=== PATIENT | male | born 1955 | race Caucasian/White ===

== ENCOUNTER → 2018-07-01 | Outpatient (CLI) | payer OTHER ==
--- NOTE | 2018-07-01 18:50 | MR ---
EXAMINATION TYPE: MR knee LT wo con DATE OF EXAM: 07/01/2018 COMPARISON: NONE HISTORY: Pain in left knee per order. Internal derangement rule out torn meniscus. Pain and swelling after twisting injury per patient. TECHNIQUE: Multiplanar, multisequence images of the knee is performed without IV contrast. FINDINGS: MEDIAL MENISCUS: Anterior horn is intact without tear. Posterior horn medial meniscus is markedly abn ormal with truncated appearance and vertical as well as oblique areas of increased signal extending t o articular surface seen best sagittal image 25. LATERAL MENISCUS: Anterior and posterior horns are intact without tear. CRUCIATE LIGAMENTS: The anterior and posterior cruciate ligaments are intact and unremarkable. COLLATERAL LIGAMENTS: The medial collateral ligament and lateral collateral ligament complex are inta ct. Mild fluid signal surrounds both medial collateral ligament and lateral collateral ligament compl ex. EXTENSOR MECHANISM: Visualized quadriceps and patellar tendons are intact. EFFUSION: There is small to moderate-sized suprapatellar joint effusion. POPLITEAL CYST: No popliteal/gonzalez cyst. TRICOMPARTMENT SPACES: Mild to moderate tricompartment joint space loss is present with mild spurring . CARTILAGE: Minimal fissuring along posterior patellar pole sagittal image 15. Mild cartilaginous loss medial tibiofemoral compartment. BONE MARROW SIGNAL: No focal abnormal marrow signal is appreciated. OTHER: There is ill-defined fluid posterior aspect extending from distal femoral level through the pr oximal tibia this surrounds the deep muscle fibers just deep to the popliteal artery and vein extendi ng to level of the posterior proximal tibial metaphysis. This is believed to be popliteus muscle. IMPRESSION: 1. Full-thickness tear posterior horn of medial meniscus with marked edema extending from this level diffusely through the popliteus muscle. 2. Small to moderate-sized suprapatellar joint effusion. 3. Mild MCL and LCL sprain injury. 4. Mild to borderline moderate tricompartment degenerative changes as detailed above
== END ==
LOC: RADMRIMAIN 16:35
PROVIDERS: ATTEND Orthopaedic Surgery
DX: S83.242A Other tear of medial meniscus, current injury, left knee, initial encounter (principal); S83.92XA Sprain of unspecified site of left knee, initial encounter; M79.89 Other specified soft tissue disorders

== ENCOUNTER → 2020-07-12 | Outpatient (CLI) | payer MEDICARE, OTHER ==
--- NOTE | 2020-07-12 15:13 | CONS ---
CONSULTATION DATE OF SERVICE: 07/12/2020. This 64-year-old gentleman has been evaluated in the sleep center for possible obstructive sleep apnea-hypopnea syndrome. HISTORY OF PRESENT ILLNESS/SLEEP-WAKE EVALUATION: The patient had a sleep study about 15 years ago, but at that time according to the patient, it was negative for obstructive sleep apnea. His sleep schedule from 11 p.m. until usually 6 a.m. basically 7 days a week. No problems with falling asleep. No TV in bedroom. He usually sleeps on the side position. According to his , he snores and has episodes of stopped breathing during the sleep. He wakes up from sleep up to 5 times with occasional episodes of nocturia. No history of hypnagogic hallucinations, sleep paralysis or cataplexy. In the morning, patient wakes up tired. Falling asleep during the day. [place] Sleepiness Scale increased to 10. He may take one nap early afternoon. He usually drinks 2 caffeinated beverages during the day. No history of sleep paralysis, cataplexy, or hypnagogic hallucinations. PAST MEDICAL HISTORY: Positive for hypertension, hyperlipidemia, episodes of headaches, acid reflux, back problems. PAST SURGICAL HISTORY: Bilateral knee arthroscopic surgery for meniscus problems. MEDICATIONS: Pantoprazole 40 mg every other day, lisinopril 40 mg once a day, amlodipine 5 mg once a day, atorvastatin 10 mg once a day, niacinamide 500 mg once a day. SOCIAL HISTORY: Negative for smoking or using alcohol. FAMILY HISTORY: Hypertension. REVIEW OF SYSTEMS: Multiple awakenings from sleep, sleepiness during the day. No fevers. No double vision. No recent chest pain. No shortness of breath. No abdominal pain. No bleeding episodes. No blood in the urine. No seizure episodes. PHYSICAL EXAMINATION: GENERAL: gentleman without distress. VITAL SIGNS: BP 137/82, HR 65, RR 15, height 5 feet 11 inches, weight 237.6, temperature 97.8, oxygen saturation at room air 97%, body mass index 33. Neck is 17- 1/4 inches in circumference. HEENT: PERRLA, EOMI, evaluation of oropharynx showed extremely low position of soft palate. Mallampati 4. NECK: Supple, no JVD. Thyroid is not palpable. LUNGS: Clear to percussion and to auscultation. Good air exchange. No wheezing or rhonchi. HEART: S1, S2 regular. No murmurs, gallops, or rubs. ABDOMEN: Slightly obese. EXTREMITIES: No clubbing or cyanosis. WARP KNITTING MACHINE OPERATOR: Awake, alert, and oriented X3. Cranial nerves 2 to 7 intact. There is no fasciculation or atrophy. noted. No focal deficits observed. IMPRESSION: 1. Snoring, witnessed episodes of stopped breathing during sleep, extremely low position of soft palate, Mallampati 4, wide neck is 17-1/4 inches in circumference, sleepiness, [place] Sleepiness Scale 10, obstructive sleep apnea-hypopnea syndrome. 2. Mild obesity, body mass index 33. 3. Hypertension. 4. Hyperlipidemia. 5. Headaches. 6. Acid reflux. 7. Status post bilateral arthroscopic knee surgery for meniscus problems. 8. Back problems. PLAN: 1. Polysomnography for evaluation of patient's breathing during sleep. 2. CPAP/BiPAP titration if sleep study confirms obstructive sleep apnea-hypopnea syndrome. 3. Preferable position during sleep on the side. 4. No driving if patient feels any sleepiness. 5. I will see patient for follow up visit to explain results of testing and following plan. Thank you very much for referring this patient for consultation. Sincerely, Robbie Walters MD, PhD, FAASM Diplomat of [employer] [employer] Municipal Services Manager of [facility] [place] MMPHILLIP / MARGARITA: [id number] /
== END ==
LOC: SLEEP 13:16
PROVIDERS: ATTEND Internal Medicine
DX: G47.33 Obstructive sleep apnea (adult) (pediatric) (principal)
CPT/HCPCS: 99211

== ENCOUNTER → 2020-10-18 | Outpatient (CLI) | payer MEDICARE, OTHER ==
--- NOTE | 2020-10-19 08:40 | SFUN ---
SLEEP CENTER FOLLOW UP NOTE DATE OF SERVICE: 10/18/2020 65-year-old gentleman has been followed in Sleep Center for treatment of obstructive sleep apnea-hypopnea syndrome. Recently the patient had polysomnogram which showed severe abnormalities of respiration and CPAP titration. Today is his first visit after he was started on treatment with CPAP. I discussed results of diagnostic polysomnogram and PAP titration with the patient in detail. The patient was able to use CPAP equipment every night and he feels more refreshed in the morning after awakenings while using CPAP and also he mentioned that his blood pressure while he started to use the CPAP improved. Both sleep study also indicated very severe periodic limb movements for more than 100 times per hour. I checked his CPAP unit. Range of the pressure 5-15 with average pressure 13.5. The patient using machine every night 30/30 nights for more than 4 hours with average usage 7 hours per night. Leak is 8 L/minute which is normal range for the full-face mask. Apnea-hypopnea index only 1.5 which is normal. [place] Sleepiness Scale today is 7. The patient still sometimes feels sleepiness afternoon. MEDICATIONS: Pantoprazole, lisinopril, amlodipine atorvastatin, niacinamide. PHYSICAL EXAMINATION: GENERAL: Patient in no distress. BP 135/76, HR 78, RR 16, weight 215.6, temperature 97.3, oxygen saturation at room air 98%. Neck is 17-1/4 inches in circumference. Oropharynx extremely low position of soft palate, Mallampati 4. NECK: Supple, no JVD. Thyroid is not palpable. LUNGS: Clear to percussion and to auscultation. Good air exchange. No wheezing or rhonchi. HEART: S1, S2 regular. No murmurs, gallops, or rubs. ABDOMEN: Slightly obese. Soft and nontender. Bowel sounds are present. No organomegaly appreciated. EXTREMITIES: No clubbing or cyanosis. POLICE CHIEF: Awake, alert, and oriented X3. Cranial nerves 2 to 7 intact. There is no fasciculation or atrophy. noted. No focal deficits observed. IMPRESSION: 1. Severe obstructive sleep apnea-hypopnea syndrome, apnea-hypopnea index 39.1 with oxygen desaturation to 82% on control with CPAP. The patient demonstrated 100% compliance with treatment benefitting from treatment. 2. Severe periodic limb movements during diagnostic night and titration. The patient continues to feel episodes of sleepiness while his respiration on full control with CPAP, periodic limb movement syndrome. 3. Mild obesity. 4. Hypertension on better control patient after patient started to use CPAP treatment. 5. Hyperlipidemia. 6. History of headaches. 7. Acid reflux. 8. Status post bilateral arthroscopic knee surgery for meniscus problems. 9. Back problems. PLAN: 1. I will start patient on Mirapex 0.125 mg 1-2 tablets at bedtime to prevent an extremely severe periodic limb movements. 2. Patient will continue to use PAP equipment every night for the whole night. 3. Sleep hygiene with regular time in bed for at least 7-1/2 to 8 hours. 4. Precautions related to driving. No driving if feeling sleepiness. 5. I will maintain all necessary prescription for PAP supplies including mask, tube, filters. 6. Watching weight. 7. Follow-up visit in 3 months or earlier if patient has any problems. Thank you very much for allowing me to participate in management of your patient. Sincerely, Robbie Walters MD, PhD, FAASM Diplomat of [employer] Sleep Medicine Board of [place] [employer] Knife Setter of [facility] [place] MMODL / MARYAN: [phone] /
== END ==
LOC: SLEEP 10:50
PROVIDERS: ATTEND Internal Medicine
DX: G47.33 Obstructive sleep apnea (adult) (pediatric) (principal); G47.61 Periodic limb movement disorder; E66.9 Obesity, unspecified; I10 Essential (primary) hypertension; E78.5 Hyperlipidemia, unspecified; K21.9 Gastro-esophageal reflux disease without esophagitis; M53.80 Other specified dorsopathies, site unspecified; Z98.890 Other specified postprocedural states; Z99.89 Dependence on other enabling machines and devices

== ENCOUNTER → 2021-01-31 | Outpatient (CLI) | payer MEDICARE, OTHER ==
--- NOTE | 2021-01-31 23:08 | SFUN ---
SLEEP CENTER FOLLOW UP NOTE DATE OF SERVICE: 01/31/2021 This 65-year-old gentleman has been followed in Sleep Center for treatment of obstructive sleep apnea-hypopnea syndrome. Patient continues to use his CPAP equipment every night for the whole night, getting his supplies on time. [place] Sleepiness Scale today is 5, which is normal. I checked his CPAP unit. Range of the pressure is 5 to 15. Usage is 100% of nights for more than 4 hours, average 7.1 hours per night. Leak is 13 L/minute, which is borderline. Apnea-hypopnea index is 1.2, which is absolutely normal. MEDICATIONS: 1. Lisinopril 40 mg once a day. 2. Pantoprazole 40 mg every other day. 3. Amlodipine 5 mg once a day. PHYSICAL EXAMINATION: GENERAL APPEARANCE: Pleasant patient in no distress. VITAL SIGNS: BP 135/79, HR 56, RR 16, height 5 feet 10 inches, weight 206.0, body mass index 29.5, temperature 97.0, oxygen saturation at room air 98%. HEENT: PERRLA, EOMI, evaluation of oropharynx showed tongue protrudes midline. Extremely low position of soft palate; Mallampati IV. NECK: Supple, no JVD. Thyroid is not palpable. LUNGS: Clear to percussion and to auscultation. Good air exchange. No wheezing or rhonchi. HEART: S1, S2 regular. No murmurs, gallops, or rubs. ABDOMEN: Soft and nontender. Bowel sounds are present. No organomegaly appreciated. EXTREMITIES: No clubbing or cyanosis. PRIVATE DUTY NURSE: Awake, alert, and oriented X3. Cranial nerves 2 to 7 intact. There is no fasciculation or atrophy. noted. No focal deficits observed. IMPRESSION: 1. Severe obstructive sleep apnea-hypopnea syndrome, AHI 39.1. Patient demonstrated 100% compliance with treatment. Normal respiration on CPAP. 2. History of significant periodic limb movements. Patient has been tried on Mirapex; did not feel significant improvements, but at present no clinical symptoms of restless legs or periodic limb movements. 3. Hypertension. 4. Hyperlipidemia. 5. History of headaches. 6. Acid reflux. 7. Status post bilateral arthroscopic knee surgery for meniscus problems. 8. Back problems. PLAN: 1. Patient will continue to use PAP equipment every night for the whole night. 2. Sleep hygiene with regular time in bed for at least 7-1/2 to 8 hours. 3. Precautions related to driving. No driving if feeling sleepiness. 4. I will maintain all necessary prescription for PAP supplies including mask, tube, filters. 5. Watching weight. 6. Follow-up visit in 6 months or earlier if patient has any problems. Mirapex has been stopped. Thank you very much for allowing me to participate in the management of your patient. Sincerely, Robbie Walters MD, PhD, FAASM Diplomat of [place] [employer] Sleep Medicine Board of [place] [employer] of Internal Medicine Stereo Equipment Salesperson of [facility] [place] MMODL / MARYAN: [phone] /
== END ==
LOC: SLEEP 13:58
PROVIDERS: ATTEND Internal Medicine
DX: G47.33 Obstructive sleep apnea (adult) (pediatric) (principal); G47.61 Periodic limb movement disorder; I10 Essential (primary) hypertension; E78.5 Hyperlipidemia, unspecified; K21.9 Gastro-esophageal reflux disease without esophagitis; M53.80 Other specified dorsopathies, site unspecified; Z98.890 Other specified postprocedural states; Z99.89 Dependence on other enabling machines and devices; Z79.899 Other long term (current) drug therapy

== ENCOUNTER → 2022-01-30 | Outpatient (CLI) | payer MEDICARE, OTHER ==
--- NOTE | 2022-01-30 13:55 | P.PN ---
Subjective DATE: 01/30/2022 FOLLOW UP VISIT. Patient with obstructive sleep apnea hypopnea syndrome return to sleep center for follow-up visit. Information from previous visit have been reviewed. Patient is using PAP equipment every night for the whole night, getting PAP supplies in time. The patient does not have significant problems with the mask, PAP unit and humidification. [place] sleepiness scale is 5, which is normal. I checked information from PAP unit. PAP unit pressure 5-15, average 14 cm H2O. Usage is 100 % for more then 4 hours, average 7.6 hours per night. Leak is 7 l/m, which is in acceptable range. Apnea Hypopnea Index is 0.9, which is normal. MEDICATIONS:1. Pantoprazole 40 mg once a day 2. Lisinopril 40 mg once a day 3. Niacinamide 500 mg once a day During physical exam: GENERAL: A pleasant patient without any distress. VITAL SIGNS: BP 145/80, HR 50, RR 16 , weight 210.6, temperature 97.1, oxygen saturation at room air 78 % . HEENT: PERRLA, EOMI.low position of soft palate, Mallapati 4 . NECK: Supple. No JVD. LUNGS: Clear to percussion and to auscultation. Good air exchange. No wheezing or rhonchi. HEART: S1, S2 regular. ABDOMEN: Soft and nontender.[] EXTREMITIES: No clubbing or cyanosis. HIM CODER: Awake, alert, and oriented x3. No focal deficit. Impressions: 1. Obstructive sleep apnea-hypopnea syndrome. Patient demonstrated great compliance with treatment, benefiting from treatment. 2. History of significant periodic limb movements. Clinically no symptoms at the present time. 3. Hypertension. 4. History of headaches. 5. Hyperlipidemia. 6. Acid reflux. 7. Status post bilateral arthroscopic knee surgery for meniscus problems. 8. Back problems. Plan: 1. Continue using PAP equipment every night for the whole night. 2. To change air filter at least 1-2 times per month. 3. PAP unit should stay lower then position of the head. 4. Advised patient to remove all remaining water from humidifier canister daily and make it dry after each usage. Refill canister with fresh distilled water before each usage. 5. Sleep hygiene with regular time in bed for at least 8 hours. 6. Precautions related to driving. No driving if feel any sleepiness. 7. I will maintain prescription for PAP supplies including mask, tube, filters. 8. Follow up visit in 6 months or earlier if patient has any problems. 9. Watching and losing weight. Thank you very much for allowing me to participate in the management of your patient. Robbie Walters MD, PhD, FAASM. Diplomat of [employer], Sleep Medicine Board by [employer] Medicine Cream Ripener of [facility] [place]
== END ==
LOC: SLEEP 13:40
PROVIDERS: ATTEND Internal Medicine
DX: G47.33 Obstructive sleep apnea (adult) (pediatric) (principal); Z99.89 Dependence on other enabling machines and devices; I10 Essential (primary) hypertension; E78.5 Hyperlipidemia, unspecified; K21.9 Gastro-esophageal reflux disease without esophagitis; Z98.890 Other specified postprocedural states; M54.50 Low back pain, unspecified; Z86.69 Personal history of other diseases of the nervous system and sense organs; G47.61 Periodic limb movement disorder
CPT/HCPCS: 99212

== ENCOUNTER → 2023-01-30 | Outpatient (CLI) | payer MEDICARE ==
--- NOTE | 2023-01-30 11:06 | P.PN ---
Subjective DATE: 01/30/2023 FOLLOW UP VISIT. Patient with obstructive sleep apnea hypopnea syndrome return to sleep center for follow-up visit. Information from previous visit have been reviewed. Patient is using PAP equipment every night for the whole night, getting PAP supplies in time. The patient does not have significant problems with the mask, PAP unit and humidification. [place] sleepiness scale is 8, which is normal. I checked information from PAP unit and discussed it with patient in details. PAP unit pressure 5-15, average 13 cm H2O. Usage is 100 % for more then 4 hours, average 7.5 hours per night. Leak is 6 l/m, which is in acceptable range. Apnea Hypopnea Index is 2.2, which is normal. MEDICATIONS:1. Lisinopril 40 mg once a day 2. Pantoprazole 40 mg once a day 3. Niacinamide 500 mg once a day During physical exam: GENERAL: A pleasant patient without any distress. VITAL SIGNS: BP 145/76, HR 53, RR 14 , weight 211.6, temperature 98, oxygen saturation at room air 98 % . HEENT: PERRLA, EOMI.low position of soft palate, Mallapati 4 . NECK: Supple. No JVD. LUNGS: Clear to percussion and to auscultation. Good air exchange. No wheezing or rhonchi. HEART: S1, S2 regular. ABDOMEN: Soft and nontender.[] EXTREMITIES: No clubbing or cyanosis. EXECUTIVE RECRUITER: Awake, alert, and oriented x3. No focal deficit. Impressions: 1. Obstructive sleep apnea-hypopnea syndrome. Patient demonstrated great compliance with treatment, benefiting from treatment. 2. History of periodic limb movements, no complaints of the present time. 3. Hypertension. 4. Hyperlipidemia. 5. Acid reflux. 6. History of headaches. 7. Back problems. 8. Status post bilateral arthroscopic knee surgery for meniscus problems. Plan: 1. Continue using PAP equipment every night for the whole night. Patient will try different size of for face mask. 2. To change air filter at least 1-2 times per month. 3. PAP unit should stay lower then position of the head. 4. Advised patient to remove all remaining water from humidifier canister daily and make it dry after each usage. Refill canister with fresh distilled water before each usage. 5. Sleep hygiene with regular time in bed for at least 8 hours. 6. Precautions related to driving. No driving if feel any sleepiness. 7. I will maintain prescription for PAP supplies including mask, tube, filters. 8. Watching weight. 9. Follow up visit in 6 months or earlier if patient has any problems. Thank you very much for allowing me to participate in the management of your patient. Robbie Walters MD, PhD, FAASM. Diplomat of [place] Board [employer] Sleep Medicine, Sleep Medicine Board by [place] [employer] Medicine Med Peds of [facility] [place]
== END ==
LOC: 3 N SLEEP 09:58
PROVIDERS: ATTEND Internal Medicine
DX: G47.33 Obstructive sleep apnea (adult) (pediatric) (principal); G47.61 Periodic limb movement disorder; I10 Essential (primary) hypertension; E78.5 Hyperlipidemia, unspecified; K21.9 Gastro-esophageal reflux disease without esophagitis; M53.9 Dorsopathy, unspecified; Z86.69 Personal history of other diseases of the nervous system and sense organs; Z99.89 Dependence on other enabling machines and devices
CPT/HCPCS: 99212

== ENCOUNTER → 2024-02-04 | Outpatient (CLI) | payer MEDICARE ==
[2024-02-04 15:52] VITALS: BP 157/83; PULSE 52; RESP 18; TEMP 97.8
--- NOTE | 2024-02-04 16:22 | P.PROGSL ---
Subjective DATE: 02/04/2024 FOLLOW UP VISIT. Patient with obstructive sleep apnea hypopnea syndrome return to sleep center for follow-up visit. Information from previous visit have been reviewed. Patient is using PAP equipment every night for the whole night, getting PAP supplies in time. The patient does not have significant problems with PAP unit and humidification. Patient feels some discomfort with full facemask related to the leak and dryness in the mouth .[place] sleepiness scale is 6, which is normal. I checked information from PAP unit. PAP unit pressure 5-15, average 14.9 cm H2O. Usage is 100% for more then 4 hours, average 6.9 hours per night. Leak is 7 l/m, which is in acceptable range. Apnea Hypopnea Index is 1.6, which is normal. MEDICATIONS have been reviewed, please see below. During physical exam: GENERAL: A pleasant patient without any distress. VITAL SIGNS: Please see below, weight is 220 lbs. HEENT: PERRLA, EOMI.low position of soft palate, Mallapati 4. NECK: Supple. No JVD. LUNGS: Clear to percussion and to auscultation. Good air exchange. No wheezing or rhonchi. HEART: S1, S2 regular. ABDOMEN: Soft and nontender.[] EXTREMITIES: No clubbing or cyanosis. SHED WORKERS SUPERVISOR: Awake, alert, and oriented x3. No focal deficit. Impressions: 1. Obstructive sleep apnea-hypopnea syndrome. Patient demonstrated great c ompliance with treatment, benefiting from treatment. 2. Hypertension. 3. History of periodic limb movements, no complaints at the present time. 4. Hyperlipidemia. 5. Acid reflux. Plan: 1. Continue using PAP equipment every night for the whole night. Patient will try nasal mask with chinstrap and if necessary nasal strips. 2. Sleep hygiene with regular time in bed for at least 7.5-8 hours 3. PAP unit should stay lower then position of the head. 4. Advised patient to remove all remaining water from humidifier canister daily and make it dry after each usage. Refill canister with fresh distilled water before each usage. 5. Watching weight. 6. Precautions related to driving. No driving if feel any sleepiness. 7. I will maintain prescription for PAP supplies including mask, tube, filters. 8. Follow up visit in 8 months or earlier if patient has any problems. Thank you very much for allowing me to participate in the management of your patient. Robbie Walters MD, PhD, FAASM. Diplomat of [employer] [employer] Sleep Medicine, Sleep Medicine Board by [employer] Software Project Lead of [facility] [place] Objective - Vital Signs Vital Signs: Vital Signs Temp 97.8 F 02/04/24 15:48 Pulse 52 L 02/04/24 15:48 Resp 18 02/04/24 15:48 BP 157/83 02/04/24 15:48 Pulse Ox 96 02/04/24 15:48 FiO2 Intake & Output 02/03/24 02/04/24 02/04/24 18:59 06:59 18:59 Weight 99.79 kg Home Medications: Home Medications Medication Instructions Recorded Confirmed Type Fenofibrate [Tricor] 160 mg PO DAILY 12/24/13 12/24/13 History Pantoprazole Sodium [Protonix] 40 mg PO DIRECTED 12/24/13 02/04/24 History Niacin (Inositol Niacinate) 500 mg PO DAILY 02/04/24 History [Niacin 500 mg Capsule] Niacinamide 500 mg PO DAILY 02/04/24 02/04/24 History lisinopriL 40 mg PO DAILY 02/04/24 02/04/24 History
== END ==
LOC: 3 N SLEEP 14:49
PROVIDERS: ATTEND Internal Medicine
DX: G47.33 Obstructive sleep apnea (adult) (pediatric) (principal); I10 Essential (primary) hypertension; G47.61 Periodic limb movement disorder; E78.5 Hyperlipidemia, unspecified; K21.9 Gastro-esophageal reflux disease without esophagitis; Z99.89 Dependence on other enabling machines and devices
CPT/HCPCS: 99212